=== PATIENT | female | born 1950 | race Caucasian/White ===

== ENCOUNTER 2021-11-11 11:19 | Emergency (ER) | payer MEDICARE ==
[2021-11-11 12:50] LABS: #Eosinphils 0.2 10x3/uL (0.0-0.5); #Monocytes 0.2 10x3/uL (0.0-1.1); #Neutrophils 1.9 10x3/uL (1.5-8.4); %Lymphocytes 39.5 % (18.0-47.0); %Monocytes 4.4 % (0.0-10.0); %Neutrophils 48.8 % (40.0-75.0); Hemoglobin 12.7 g/dL (12.0-15.5); Mean Corpuscular Hemoglobin 31.9 pg (27.0-33.0); Mean Corpuscular Volume 96.7 fl (81.6-98.3); Platelet Count 268 10x3/uL (150-450); RBC Distribution Width 14.3 % (11.5-14.5); Red Blood Cell (RBC) Count 3.98 10x6/uL (3.90-5.03); White Blood Cell (WBC) Count 3.9 10x3/uL (3.5-10.5)
[2021-11-11 12:57] LABS: ALT (SGPT) 14 U/L (8-55); AST (SGOT) 19 U/L (5-34); Albumin 4.2 g/dL (3.4-4.8); Alkaline Phosphatase 141 U/L (40-110); Anion Gap 15 mmol/L (10-20); BUN (Urea Nitrogen) 11 mg/dL (9.8-20.1); Bilirubin, Total 0.4 mg/dL (0.2-1.2); Calc. Creatinine Clearance 0 mL/min (70-130); Calcium 9.6 mg/dL (7.8-10.44); Carbon Dioxide 28 mmol/L (23-31); Chloride 101 mmol/L (98-107); Globulin 3.8 g/dL (2.4-3.5); Glucose 105 mg/dL (80-115); Lipase 13 U/L (8-78); Potassium 3.6 mmol/L (3.5-5.1); Sodium 140 mmol/L (136-145)
[2021-11-11 12:57] LABS: Bilirubin Neg (Negative); Blood, Urine Negative (Negative); Clarity Clear (Clear); Glucose, Urine (Dipstick) Normal (Negative); Ketone, Urine Negative (Negative); Leukocyte Negative (Negative); Nitrite Negative (Negative); Protein, Urine (Dipstick) Negative (Neg-Trace); Specific Gravity, Urine 1.005 (1.002-1.036); Urobilinogen Normal mg/dL (Less than 2); pH, Urine 6.5 (5.0-9.0)
== END 2021-11-11 15:10 | disposition home or self-care (01) ==
LOC: CSHERS 11:19
DX: R19.00 Intra-abdominal and pelvic swelling, mass and lump, unspecified site (principal); F41.1 Generalized anxiety disorder; K21.9 Gastro-esophageal reflux disease without esophagitis; I10 Essential (primary) hypertension; F17.210 Nicotine dependence, cigarettes, uncomplicated; Z79.899 Other long term (current) drug therapy; Z79.82 Long term (current) use of aspirin
CPT/HCPCS: 36415; 70450; 74177; 80053; 81003; 83690; 85025; 93005

== ENCOUNTER 2022-07-24 13:18 | Emergency (ER) | payer MEDICARE ==
[2022-07-24] MEDS ORDERED: predniSONE 20 MG TAB ONE (14:24)
[2022-07-24] MEDS ORDERED: cefTRIAXone\\ROCEPHIN 1 GM VIAL ONE (14:58)
[2022-07-24 15:25] LABS: SARS-CoV-2 NAA Rapid Test Not Detected (NotDetected)
[2022-07-24] MEDS ORDERED: Lorazepam 1 MG TAB ONE (15:31)
[2022-07-24 15:33] LABS: #Neutrophils 0.1 10x3/uL (1.5-8.4); %Lymphocytes 75.5 % (18.0-47.0); %Monocytes 1.9 % (0.0-10.0); %Neutrophils 20.7 % (40.0-75.0); Hemoglobin 8.5 g/dL (12.0-15.5); Mean Corpuscular Hemoglobin 39.7 pg (27.0-33.0); Mean Corpuscular Volume 107.5 fl (81.6-98.3); Mean Platelet Volume 12.5 fl (7.4-10.4); Platelet Count 127 10x3/uL (150-450); RBC Distribution Width 13.2 % (11.5-14.5); Red Blood Cell (RBC) Count 2.14 10x6/uL (3.90-5.03)
[2022-07-24 15:35] LABS: White Blood Cell (WBC) Count 0.5 10x3/uL (3.5-10.5)
[2022-07-24 15:59] LABS: Anisocytosis SLIGHT = 6-15 cells (100X) (0-5/hpf); Macrocytosis MODERATE=16-30 cells (100X) (0-5/hpf)
[2022-07-24 16:00] LABS: Dohle Bodies SLIGHT; Giant Platelets SLIGHT; Large Platelets SLIGHT; Toxic Granulation MODERATE
[2022-07-24 16:01] LABS: Platelet Morphology Comment Appears Decreased; Reflex for Review?? YES
[2022-07-24 16:33] LABS: White Blood Cell (WBC) Count 0.4 10x3/uL (3.5-10.5)
[2022-07-24 16:35] LABS: #Neutrophils 0.1 10x3/uL (1.5-8.4); %Lymphocytes 65.7 % (18.0-47.0); %Monocytes 5.7 % (0.0-10.0); %Neutrophils 25.7 % (40.0-75.0); Mean Corpuscular HGB CONC 36.9 g/dL (32.0-36.0); Mean Corpuscular Volume 105.9 fl (81.6-98.3); Mean Platelet Volume 12.2 fl (7.4-10.4); Platelet Count 77 10x3/uL (150-450); RBC Distribution Width 13.2 % (11.5-14.5); Red Blood Cell (RBC) Count 2.05 10x6/uL (3.90-5.03)
[2022-07-24 16:58] LABS: ALT (SGPT) 35 U/L (8-55); AST (SGOT) 62 U/L (5-34); Albumin 2.7 g/dL (3.4-4.8); Alkaline Phosphatase 105 U/L (40-110); Anion Gap 18 mmol/L (10-20); BUN (Urea Nitrogen) 34 mg/dL (9.8-20.1); Bilirubin, Total 1.4 mg/dL (0.2-1.2); Calc. Creatinine Clearance 0 mL/min (70-130); Calcium 7.8 mg/dL (7.8-10.44); Carbon Dioxide 20 mmol/L (23-31); Chloride 97 mmol/L (98-107); Estimated GFR 78; Glucose 150 mg/dL (80-115); Potassium 3.8 mmol/L (3.5-5.1); Protein, Total 6.7 g/dL (5.8-8.1); Sodium 131 mmol/L (136-145)
== END 2022-07-24 18:32 | disposition short-term general hospital (02) ==
LOC: CSHERS 13:18
DX: J10.1 Influenza due to other identified influenza virus with other respiratory manifestations (principal); D61.818 Other pancytopenia; J44.9 Chronic obstructive pulmonary disease, unspecified; I10 Essential (primary) hypertension; F17.210 Nicotine dependence, cigarettes, uncomplicated; Z20.822 Contact with and (suspected) exposure to COVID-19
CPT/HCPCS: 0240U; 71045; 80053; 83605; 85025 ×2; 87040; 94640; 94760; 36415; 85060; 96361; 96365; J0696; J7512; J7620

== ENCOUNTER 2023-04-18 22:42 | Emergency (ER) | payer MEDICARE, OTHER ==
[2023-04-19 00:34] LABS: Bilirubin Neg (Negative); Blood, Urine Negative (Negative); Clarity Slightly Cloudy (Clear); Glucose, Urine (Dipstick) Normal (Negative); Ketone, Urine Negative (Negative); Leukocyte Negative (Negative); Nitrite Negative (Negative); Protein, Urine (Dipstick) Negative (Neg-Trace)
[2023-04-19 00:46] LABS: CAUTI Indications for Culture Alt mental st,lethar; RBC/HPF None Seen HPF (0-3); Squamous Epithelial None Seen HPF (0-3); WBC/HPF 0-3 HPF (0-3)
[2023-04-19 00:47] LABS: Bacteria/HPF Rare-Few HPF (None Seen)
[2023-04-19 00:48] LABS: Urine Culture Reflex No No
[2023-04-19 01:22] LABS: Hemoglobin 4.8 g/dL (12.0-15.5); Mean Corpuscular HGB CONC 35.3 g/dL (32.0-36.0); Mean Corpuscular Hemoglobin 36.1 pg (27.0-33.0); Mean Corpuscular Volume 102.3 fl (81.6-98.3); Mean Platelet Volume 11.2 fl (7.4-10.4); Platelet Count 14 10x3/uL (150-450); RBC Distribution Width 15.3 % (11.5-14.5); Red Blood Cell (RBC) Count 1.33 10x6/uL (3.90-5.03); White Blood Cell (WBC) Count 12.3 10x3/uL (3.5-10.5)
[2023-04-19 01:31] LABS: ALT (SGPT) 17 U/L (8-55); AST (SGOT) 38 U/L (5-34); Acetaminophen Less than 10 mcg/mL (10.0-30.0); Albumin 3.5 g/dL (3.4-4.8); Alcohol Less than 10.0 mg/dL (Less than 10); Alkaline Phosphatase 64 U/L (40-110); Anion Gap 22 mmol/L (10-20); BUN (Urea Nitrogen) 84 mg/dL (9.8-20.1); Bilirubin, Total 1.1 mg/dL (0.2-1.2); Calc. Creatinine Clearance 0 mL/min (70-130); Calcium 8.2 mg/dL (7.8-10.44); Carbon Dioxide 25 mmol/L (23-31); Chloride 93 mmol/L (98-107); Estimated GFR 24; Globulin 3.5 g/dL (2.4-3.5); Glucose 169 mg/dL (83-110); Lipase Less than 4 U/L (8-78); Potassium 3.4 mmol/L (3.5-5.1); Salicylate Less than 8.0 mg/dL (15.0-30.0); Sodium 137 mmol/L (136-145)
[2023-04-19 01:47] LABS: Actual Bicarbonate (HCO3a) 26.5 mEq/L (22-28); Base Excess (BEa) 3.5 mEq/L (-2.0 to +3.0); CO2 Tension 33.1 mmHg (35.0-45.0); Calcium, Ionized (arterial) 0.97 mmol/L (1.12-1.30); Carboxyhemoglobin (COHb) 0.4 gm% (0.0-3.0); Hematocrit-ABG 22 % (36.0-47.0); Hemoglobin (Hb) 7.6 g/dL (12.0-16.0); O2 Tension (PaO2), arterial 83.1 mmHg (> 70.0); Potassium - ABG Lab 3.16 mmol/L (3.70-5.30); Puncture Site RRA; pH, Arterial 7.521 (7.35-7.45)
[2023-04-19 01:50] LABS: ALV-art Gradient 75.165 mmHg (0-20)
[2023-04-19 01:50] LABS: CKMB 4.8 ng/mL (0-6.6)
[2023-04-19 02:06] LABS: MDiff Complete? YES
[2023-04-19 03:16] LABS: Band 1 % (5-11); Lymphocytes 83 % (21-51); Metamyelocyte 1 % (0-0); Monocytes 6 % (0-10); Nucleated RBC (Manual Ct) 1 % (0); Other Cell Types 9
[2023-04-19 03:21] LABS: Macrocytosis MODERATE=16-30 cells (100X) (0-5/hpf); Platelet Adequacy Comment Significant decrease
[2023-04-19 03:23] LABS: Reflex for Review?? YES
[2023-04-19 06:46] LABS: Neutrophil 0 % (42-75)
== END 2023-04-19 04:26 | disposition short-term general hospital (02) ==
LOC: CSHERS 22:42
DX: D64.9 Anemia, unspecified (principal); E86.0 Dehydration; R79.89 Other specified abnormal findings of blood chemistry; D69.6 Thrombocytopenia, unspecified; K21.9 Gastro-esophageal reflux disease without esophagitis; I10 Essential (primary) hypertension; J44.9 Chronic obstructive pulmonary disease, unspecified; F17.210 Nicotine dependence, cigarettes, uncomplicated
CPT/HCPCS: 36430; 36600; 51701; 70450; 71045; 80053; 80307; 81001; 82553; 82805; 83690; 83735; 84484; 85025; 86850; 86900; 86901; 86920; 93005; 94760; 99285; P9016; 36415; 82274; 85060; 88184